=== PATIENT | male | born 1975 | race African-American/Black ===

== ENCOUNTER 2017-01-31 15:46 | Emergency (ER) | payer BC ==
[2017-01-31] MEDS ORDERED: Sodium Chloride 0.9% 10 ML Syringe FLUSH PRN (16:04)
[2017-01-31] MEDS ORDERED: Labetalol 100 MG/20 ML MDV IVPUSH ONE (16:05)
--- NOTE | 2017-01-31 16:15 | EDM.PDOC ---
ED HPI GENERAL MEDICAL PROBLEM - General Chief Complaint: Chest Pain Stated Complaint: CHEST PAINS Time Seen by Provider: 01/31/17 15:50 Source of Information: Reports: Patient History Limitations: Reports: No Limitations - History of Present Illness INITIAL COMMENTS - FREE TEXT/NARRATIVE: 41-year-old male presents for evaluation treatment of chest pain. Patient reports that the chest pain started around 6 AM this morning. Reports that is located in the center of his chest. Rates the pain as a 5 out of 10. Describes as a sharp sensation. Patient reports he initially developed pain to his neck and occipital region of his head. He reports since then this the neck pain has resolved. Continues to have slight chest discomfort. Worse with palpation. He denies any abdominal pain, shortness of breath, diaphoresis, nausea, vomiting, lightheadedness, dizziness or syncope. he does not have any cardiac history. He states that he has a stress test yearly for his job. Patient is a diabetic. He also has hypercholesterolemia and hypertension. Location: Reports: Neck, Chest Chest Pain Score (Numeric/FACES): 5 - Related Data Allergies Allergy/AdvReac Type Severity Reaction Status Date / Time No Known Allergies Allergy Verified 01/31/17 15:55 Home Meds: Home Meds Bp Pill? 01/31/17 [History] Chol. Pill? 01/31/17 [History] Past Medical History Cardiovascular History: Reports: High Cholesterol, Hypertension Social & Family History - Tobacco Use Smoking Status *Q: Never Smoker - Recreational Drug Use Recreational Drug Use: No - Living Situation & Occupation Living situation: Reports: Single Occupation: Employed ED ROS GENERAL - Review of Systems Review Of Systems: See Below Constitutional: Denies: Diaphoresis Respiratory: Denies: Shortness of Breath Cardiovascular: Reports: Chest Pain. Denies: Lightheadedness GI/Abdominal: Denies: Abdominal Pain, Nausea, Vomiting Musculoskeletal: Reports: Neck Pain (earlier, now resolved) Neurological: Denies: Dizziness, Headache, Syncope ED EXAM, GENERAL - Physical Exam Exam: See Below Exam Limited By: No Limitations General Appearance: Alert, WD/WN, No Apparent Distress Eye Exam: Bilateral Eye: PERRL Ears: Normal External Exam Nose: Normal Inspection Throat/Mouth: Normal Inspection, Normal Lips, Normal Voice, No Airway Compromise Head: Normocephalic Neck: Normal Inspection, Supple, Non-Tender, Full Range of Motion Respiratory/Chest: No Respiratory Distress, Lungs Clear, Normal Breath Sounds, Other (tenderness to ribs 3-5 and sternum with palpation) Cardiovascular: Normal Peripheral Pulses, Regular Rate, Rhythm, No Murmur Peripheral Pulses: 2+: Radial (L), Radial (R), Posterior Tibial (L), Posterior Tibial (R), Dorsalis Pedis (L), Dorsalis Pedis (R) GI/Abdominal: Soft, Non-Tender Neurological: Alert, Oriented, Normal Cognition, Normal Gait Psychiatric: Normal Affect, Normal Mood Skin Exam: Warm, Dry, Normal Color EKG INTERPRETATION EKG Date: 01/31/17 Time: 15:55 Rhythm: NSR Rate (Beats/Min): 94 [place]: Normal P-Wave: Present QRS: Normal ST-T: Normal QT: Normal EKG Interpretation Comments: NSr at 94 bpm. peaked t waves in V2. LVH. REviewed by myself and Dr. Cerda. Course - Vital Signs Last Recorded V/S: Last Vital Signs Temp 36.1 C 01/31/17 16:02 Pulse 89 01/31/17 16:20 Resp BP 175/87 H 01/31/17 16:20 Pulse Ox 99 01/31/17 16:02 - Orders/Labs/Meds Orders: Active Orders 24 hr Category Date Time Status Cardiac Monitoring [RC] . DIRECTED Care 01/31/17 16:03 Active EKG Documentation Completion [RC] STAT Care 01/31/17 16:03 Active Peripheral IV Care [RC] . DIRECTED Care 01/31/17 16:04 Active Peripheral IV Insertion Adult [OM.PC] Routine Oth 01/31/17 16:04 Ordered Labs: Laboratory Tests 01/31/17 01/31/17 01/31/17 Range/Units 16:15 16:15 16:15 WBC 7.44 (4.23-9.07) K/mm3 RBC 4.27 L (4.63-6.08) M/mm3 Hgb 12.6 L (13.7-17.5) gm/L Hct 38.1 L (40.1-51.0) % MCV 89.2 (79.0-92.2) fl MCH 29.5 (25.7-32.2) pg MCHC 33.1 (32.2-35.5) g/dl RDW Std Deviation 41.0 (35.1-43.9) fL Plt Count 216 (163-337) K/mm3 MPV 12.7 H (9.4-12.3) fl Neutrophils % (Manual) 64 H (40-60) % Band Neutrophils % 0 (0-10) % Lymphocytes % (Manual) 25 (20-40) % Atypical Lymphs % 0 % Monocytes % (Manual) 8 (2-10) % Eosinophils % (Manual) 2 (0.8-7.0) % Basophils % (Manual) 1 (0.2-1.2) Platelet Estimate Adequate Plt Morphology Comment Normal RBC Morph Comment Normal PT 10.7 (8.0-13.0) SECONDS INR 0.98 APTT 27 (22-36) SECONDS Sodium 139 (136-145) mEq/L Potassium 4.0 (3.5-5.1) mEq/L Chloride 104 (98-107) mEq/L Carbon Dioxide 29 (21-32) mEq/L Anion Gap 10.0 (5-15) BUN 13 (7-18) mg/dL Creatinine 1.3 (0.7-1.3) mg/dL Est Cr Clr Drug Dosing 81.25 mL/min Estimated GFR (MDRD) > 60 (>60) mL/min BUN/Creatinine Ratio 10.0 L (14-18) Glucose 279 H (74-106) mg/dL Calcium 9.0 (8.5-10.1) mg/dL Total Bilirubin 0.5 (0.2-1.0) mg/dL AST 13 L (15-37) U/L ALT 26 (16-63) U/L Alkaline Phosphatase 82 (46-116) U/L CK-MB (CK-2) 1.8 (0-3.6) ng/ml Troponin I < 0.017 (0.00-0.056) ng/mL Total Protein 7.8 (6.4-8.2) g/dl Albumin 3.6 (3.4-5.0) g/dl Globulin 4.2 gm/dL Albumin/Globulin Ratio 0.9 L (1-2) Lipase 187 (73-393) U/L Meds: Medications Discontinued Medications Generic Name Dose Route Start Last Admin Trade Name Freq PRN Reason Stop Dose Admin Sodium Chloride 100 mls @ 60 mls/hr 01/31/17 17:00 01/31/17 17:01 Normal Saline IV 60 mls/hr ASDIRECTED GERARD Administration Iopamidol 100 ml 01/31/17 16:48 01/31/17 17:01 [id number] (76%) IVPUSH 01/31/17 16:49 100 ml ONETIME ONE Administration Labetalol HCl 20 mg 01/31/17 16:05 01/31/17 16:20 Normodyne IVPUSH 01/31/17 16:06 20 mg ONETIME ONE Administration Protocol Ondansetron HCl 4 mg 01/31/17 17:03 01/31/17 17:09 Zofran IVPUSH 01/31/17 17:04 4 mg ONETIME ONE Administration Sodium Chloride 10 ml 01/31/17 16:04 01/31/17 16:15 Saline Flush FLUSH 10 ml ASDIRECTED PRN Administration Keep Vein Open Sodium Chloride 10 ml 01/31/17 16:48 01/31/17 17:01 Saline Flush FLUSH 01/31/17 16:49 10 ml ONETIME ONE Administration - Radiology Interpretation Free Text/Narrative:: chest 1 view shows no acute intrathoracic process. CT of the chest, abdomen and pelvis with contrast impression per vrad: no acute aortic event. No dissection. gallstones, no evidence for cholecystitis. - Re-Assessments/Exams Free Text/Narrative Re-Assessment/Exam: 01/31/17 16:17 Dr. Cerda recommends obtaining a CT of the chest to rule out dissection given his neck pain. 01/31/17 18:49 I reviewed the labs, EKG, chest x-ray and chest CT results with the patient. Blood pressure significantly improved to the 160s to 150s systolic. Continues to state the next pain is resolved. Continues minor discomfort at the chest declines pain medication. I Feel symptoms are likely from costochondritis. Will discharge home at this time. Discharge instructions as documented. Departure - Departure Time of Disposition: 18:50 Disposition: Home, Self-Care 01 Condition: Good Clinical Impression: Costochondritis Instructions: Costochondritis, [id number] Referrals: Juan Knowles Jr, MD [Primary Care Provider] - Forms: ED Department Discharge, ED Return to Work/School Form Additional Instructions: [id number] ibuprofen for pain relief. Follow-up with your primary care provider for your symptoms. Note given for work. Please return to the ER if your symptoms change or worsen. - My Orders Last 24 Hours: My Active Orders 01/31/17 16:03 Cardiac Monitoring [RC] . DIRECTED EKG Documentation Completion [RC] STAT 01/31/17 16:04 Peripheral IV Care [RC] . DIRECTED Peripheral IV Insertion Adult [OM.PC] Routine - Assessment/Plan Last 24 Hours: My Active Orders 01/31/17 16:03 Cardiac Monitoring [RC] . DIRECTED EKG Documentation Completion [RC] STAT 01/31/17 16:04 Peripheral IV Care [RC] . DIRECTED Peripheral IV Insertion Adult [OM.PC] Routine
[2017-01-31 16:26] VITALS: BP 175/87
[2017-01-31] MEDS ORDERED: Iopamidol 755 Mg/ML 100 ML Bottle IVPUSH ONE (16:48)
[2017-01-31] MEDS ORDERED: Sodium Chloride 0.9% 10 ML Syringe FLUSH ONE (16:48)
[2017-01-31] MEDS ORDERED: Sodium Chloride 0.9% 100 ML IV SCH (17:00)
[2017-01-31] MEDS ORDERED: Ondansetron 4 MG/2 ML SDV IVPUSH ONE (17:03)
--- NOTE | 2017-02-01 12:16 | CT ---
CT chest Technique: Multiple axial sections were obtained from above the lung apices inferiorly through the lung bases. Intravenous contrast was utilized. Study performed as an aortogram exam. Comparison: No previous study other than chest x-ray performed earlier on the same day. Findings: Aorta shows no aneurysm or dissection. Pulmonary arteries show no proximal filling defects to indicate proximal pulmonary embolism. No mediastinum or hilar abnormalities are seen. No pericardial thickening is seen. Lungs are clear. No pleural effusions or pneumothorax is seen. Scattered degenerative endplate spurring is noted within the spine. Impression: 1. No aneurysm or dissection. Other incidental findings. Diagnostic code #2 I agree with preliminary report issued by [facility] ([employer] preliminary report dictated on 01/31/17, 6:35 PM Central Time) CT abdomen and pelvis Technique: Multiple axial sections were obtained from above the dome of the diaphragm inferiorly through the pubic symphysis. Intravenous contrast was utilized. No oral contrast was utilized. Contrast timing performed as an aortogram study. Findings: Aorta shows no aneurysmal dilatation. No intimal flap is seen to indicate dissection. Single renal arteries are seen which show no stenosis. Celiac axis and proximal superior mesenteric artery is unremarkable. Inferior mesenteric artery is patent. Liver shows no focal parenchymal abnormality. Slight increased density within the gallbladder is seen either due to sludge or gallstones. Spleen appears within normal limits. Adrenal glands show no nodule. Kidneys show symmetric contrast enhancement without hydronephrosis or mass. Appendix appears within normal limits. No retroperitoneal adenopathy or mesenteric abnormalities are seen. No pelvic mass or adenopathy is seen. Bone window settings were reviewed which show scattered degenerative spurring within the spine. Impression: 1. No abdominal aortic aneurysm or dissection. 2. Mild increased density within the gallbladder either due to sludge or gallstones. 3. Incidental degenerative spurring within the spine. Diagnostic code #2 I agree with preliminary report issued by [facility] ([employer] preliminary report dictated on 01/31/17, 6:35 PM Central Time)
--- NOTE | 2017-02-01 12:16 | CR ---
Chest: Portable view of the chest was obtained. Comparison: No prior study. Heart size and mediastinum are normal. Lungs are clear. Bony structures are grossly intact. Impression: 1. Nothing acute is identified on portable chest x-ray. Diagnostic code #1
== END 2017-01-31 19:30 | disposition home or self-care (01) ==
LOC: JD.ED 15:46
DX: M94.0 Chondrocostal junction syndrome [Tietze] (principal); E78.00 Pure hypercholesterolemia, unspecified; I10 Essential (primary) hypertension
CPT/HCPCS: 36415; 71010; 71260; 74177; 80053; 82553; 83690; 84484; 85025; 85610; 85730; 93005; 96374; 96375; 99285; J2405; J7030; J7050; Q9967